=== PATIENT | female | born 1985 | race Caucasian/White ===

== ENCOUNTER 2016-07-23 06:23 | Day surgery (SDC) | payer BC ==
[2016-07-21 09:35] VITALS: BMI 29.2
[2016-07-23] MEDS ORDERED: LIDOCAINE HCL 2% (20ML MULTI-DOSE VIAL) NR ONE (08:05)
[2016-07-23] MEDS ORDERED: LIDOCAINE 1%-EPI 1:100,000 30 ML MDV IJ ONE (08:06)
[2016-07-23 09:36] VITALS: TEMP 98.1
[2016-07-23 09:53] VITALS: BP 118/64; PULSE 79
--- NOTE | 2016-07-23 15:42 | OP ---
DATE OF OPERATION: 07/23/2016 DICTATING PHYSICIAN: Vamsi Carrasco MD PROCEDURE PERFORMED: Right endoscopic carpal tunnel release. SURGEON: Vamsi Carrasco MD ERGONOMIST: None ANESTHESIA: Local ANESTHESIOLOGIST: None. PREOPERATIVE DIAGNOSIS: Right carpal syndrome. POSTOPERATIVE DIAGNOSIS: Right carpal syndrome. INDICATIONS FOR PROCEDURE: The patient is known from consultation to have right carpal tunnel syndrome. The risks, benefits and alternatives were discussed with the patient. Ultimately, informed consent was obtained to proceed. CONSENT: Prior to the procedure, the patient had ample time to ask all her questions and have these questions answered to her satisfaction. The risks discussed included, but are not limited to, infection, bleeding, pillar pain, damage to the median nerve and its palmar cutaneous and motor recurrent branches, need for revision because of recurrence or incomplete release and sensitivity of the scar, unesthetic healing. Understanding these risks, the patient gave consent to proceed with the procedure. DESCRIPTION OF PROCEDURE: The patient was taken to the operating room and placed supine on the operating room table by the operating room team. The patient had been given a preoperative midforearm median and ulnar nerve block with 20 mL of 2% lidocaine in a preoperative holding area and 2 mL of 1% lidocaine with epinephrine at the incision site. The patient was placed supine on the operating room table with her right hand outstretched on the hand table, and the then the upper extremity was prepped and draped in a standard sterile fashion. An Esmarch bandage was used to exsanguinate the limb from distal to proximal and after a standard operative time-out in which the patient's input was included, the tourniquet was inflated to 250 mmHg. A transverse incision in the proximal wrist crease was made in standard fashion and blunt spreading dissection was performed down to the antebrachial fascia. The palmaris longus tendon was retracted radially. An axially-oriented sharp incision was made through the antebrachial fascia and this was dilated with the [employer] instruments in standard fashion. A hamate finder was used to confirm presence in the carpal canal and a synovial scraper was used in standard fashion. Washboard texture of the undersurface of the transverse carpal ligament was confirmed. The measuring device was then placed. The [employer] endoscopic carpal tunnel system was then introduced. Excellent visualization was obtained of the undersurface of the transverse carpal ligament. At no point was the median nerve visualized with the endoscope. The transverse carpal ligament was divided from distal to proximal. The distal half was divided. The endoscope was re-inserted to confirm complete release. The proximal half was then divided. The endoscope was then re-inserted to confirm complete release. After complete release was established, the tenotomy scissors were used to release the most proximal edge of the transverse carpal ligament under direct visualization and the antebrachial fascia was also released proximally under direct visualization. The tourniquet was then let down after a total tourniquet time of 25 minutes. The wound was copiously irrigated. The wound was then closed with 5-0 Vicryl sutures in buried dermal fashion followed by a dressing of Dermabond. At the end of the case, the counts were correct x 2. The patient tolerated the procedure well and departed the operating room under her own power. Disposition is to home. Complications are none. Estimated blood loss is minimal. Specimens are none. Implants are none. Postoperative examination showed the patient resting comfortably with the effects of the mid-forearm nerve block intact. The patient was able to move her fingers fully. Discharge instructions were reinforced. VAMSI CARRASCO M.D. [id number] MTDD
== END 2016-07-23 09:50 | disposition home or self-care (01) ==
LOC: FASU 06:23
PROVIDERS: ATTEND Plastic Surgery
PROC: 01N54ZZ Release Median Nerve, Percutaneous Endoscopic Approach (ICD-10-PCS; principal; 2016-07-23 08:39)
DX: G56.01 Carpal tunnel syndrome, right upper limb (principal)
CPT/HCPCS: 84703

== ENCOUNTER 2016-08-06 06:25 | Day surgery (SDC) | payer BC ==
[2016-08-04 13:17] VITALS: BMI 28.3
[2016-08-06 07:01] VITALS: TEMP 98.3
[2016-08-06] MEDS ORDERED: LIDOCAINE HCL/EPINEPHRINE/PF 20 ML VIAL ONE (07:23)
[2016-08-06] MEDS ORDERED: BACITRACIN 30 GM TUBE TOPICAL OINTMENT ONE (07:25)
[2016-08-06] MEDS ORDERED: LIDOCAINE HCL 2% (20ML MULTI-DOSE VIAL) NR ONE (07:42)
[2016-08-06 09:11] VITALS: PULSE 77
[2016-08-06 09:27] VITALS: BP 125/70
--- NOTE | 2016-08-06 10:13 | OP ---
DATE OF OPERATION: 08/06/2016 SURGEON: Vamsi Carrasco MD TRANSITION PROGRAM MANAGER: None. ANESTHESIA: Local. ANESTHESIOLOGIST: None. PREOPERATIVE DIAGNOSIS: Left carpal tunnel syndrome. POSTOPERATIVE DIAGNOSIS: Left carpal tunnel syndrome. PROCEDURE PERFORMED: Left endoscopic carpal tunnel release. INDICATIONS FOR PROCEDURE: The patient is known from consultation to have left carpal tunnel syndrome. Risks, benefits, and alternatives were discussed with the patient. Ultimately, informed consent was obtained to proceed. CONSENT: Prior to the procedure, the patient had ample time to ask all her questions, have these questions answered to her satisfaction. The risks discussed included, but were not limited to, infection, bleeding, pillar pain, damage to the median nerve and its palmar cutaneous and motor recurrent branches, need for revision because of recurrence or incomplete release, and sensitivity of the scar, unaesthetic healing. Understanding these risks, the patient gave consent to proceed with the procedure. DESCRIPTION OF PROCEDURE: Patient was taken to the operating room, placed supine on the operating room table by the operating room team. The patient was given a preoperative mid-forearm median and ulnar nerve block with 20 mL of 2% lidocaine and 3 mL of 1% lidocaine with epinephrine at the incision site. This was done in the preoperative holding area. The patient was then placed supine on the operating room table with the left hand outstretched on a hand table, and the left upper extremity was then prepped and draped in a standard sterile fashion after the placement of a well-padded upper arm tourniquet. An Esmarch bandage was used to exsanguinate the limb from distal to proximal, and after a standard operative timeout in which the patient's input was included, the tourniquet was inflated to 250 mmHg. A transverse incision in the proximal wrist crease was made in standard fashion, and blunt spreading dissection was performed down to the antebrachial fascia. The palmaris longus tendon was retracted radially. An axially oriented, sharp incision was made through the antebrachial fascia, and this was dilated with the [employer] instruments in standard fashion. A hamate finder was used to confirm presence in the carpal canal, and a synovial scraper was used in standard fashion. Washboard texture of the undersurface of the transverse carpal ligament was confirmed. The measuring device was then placed. The [employer] endoscopic carpal tunnel system was then introduced. Excellent visualization was obtained of the undersurface of the transverse carpal ligament. At no point was the median nerve visualized with the endoscope. The transverse carpal ligament was divided distal to proximal. The distal half was divided. The endoscope was reinserted to confirm complete release. The proximal half was then divided. The endoscope was then reinserted to confirm complete release. After complete release was established, tenotomy scissors were used to release the most proximal edge of the transverse carpal ligament under direct visualization, and antebrachial fascia was also released proximally under direct visualization. The tourniquet was then let down; a total tourniquet time of 18 minutes. The wound was copiously irrigated. The wound was then closed with 5-0 Monocryl sutures in buried dermal fashion, followed by a dressing of Dermabond. At the end of the case, the counts were correct x2. The patient tolerated the procedure well and departed the operating room under her own power. DISPOSITION: To recovery. COMPLICATIONS: None. ESTIMATED BLOOD LOSS: Minimal. SPECIMENS: None. IMPLANTS: None. Postoperative examination showed the patient resting comfortably with the effects of the mid-forearm nerve block intact. The patient was able to move her fingers fully. Discharge instructions were reinforced. VAMSI CARRASCO M.D. [id number]
== END 2016-08-06 09:25 | disposition home or self-care (01) ==
LOC: FASU 06:25
PROVIDERS: ATTEND Plastic Surgery
PROC: 01N54ZZ Release Median Nerve, Percutaneous Endoscopic Approach (ICD-10-PCS; principal; 2016-08-06 07:30)
DX: G56.02 Carpal tunnel syndrome, left upper limb (principal)
CPT/HCPCS: 84703